=== PATIENT | female | born 1970 | race Caucasian/White ===

== ENCOUNTER 2020-08-29 00:22 | Emergency (ER) | payer MEDICAID ==
[~2020-08-29] VITALS: Ht 170.2 cm; Wt 73.0 kg
[2020-08-29] MEDS ORDERED: CEPH-585 PO (01:38)
[2020-08-29] MEDS ORDERED: TETanus/Pertussis (Acell)/Diphther VAC/PF (Tdap-Adult) 0.5ml syringe IMVAC ONE (01:40)
[2020-08-29 01:52] VITALS: BP 134/82
== END 2020-08-29 01:53 | disposition home or self-care (01) ==
LOC: ER 00:23
DX: S91.332A Puncture wound without foreign body, left foot, initial encounter (principal); F12.90 Cannabis use, unspecified, uncomplicated; F15.90 Other stimulant use, unspecified, uncomplicated; Z72.89 Other problems related to lifestyle; Z79.899 Other long term (current) drug therapy; W45.0XXA Nail entering through skin, initial encounter; Y93.89 Activity, other specified; Y92.89 Other specified places as the place of occurrence of the external cause; Y99.8 Other external cause status
CPT/HCPCS: 90471; 90715; 99283